=== PATIENT | female | born 1955 | race Caucasian/White ===

== ENCOUNTER 2021-09-07 10:07 | Outpatient (CLI) | payer MEDICARE | END 2021-09-07 10:08 | disposition home or self-care (01) | LOC: TBSIIMAG 10:07 | PROVIDERS: ATTEND Nurse Practitioner Family | DX: M48.062 Spinal stenosis, lumbar region with neurogenic claudication (principal); M43.16 Spondylolisthesis, lumbar region; M48.07 Spinal stenosis, lumbosacral region | CPT/HCPCS: 72148 ==

== ENCOUNTER 2022-06-26 12:26 | Outpatient (CLI) | payer MEDICARE | END 2022-06-26 12:27 | disposition home or self-care (01) | LOC: BICCT 12:26 | PROVIDERS: ATTEND Nurse Practitioner Family | DX: R51.9 Headache, unspecified (principal) | CPT/HCPCS: 70450 ==

== ENCOUNTER 2022-09-06 15:22 | Outpatient (CLI) | payer MEDICARE | END 2022-09-06 15:23 | disposition home or self-care (01) | LOC: SCSRAD 15:22 | PROVIDERS: ATTEND Family Medicine | DX: M54.6 Pain in thoracic spine (principal); M51.34 Other intervertebral disc degeneration, thoracic region; M85.88 Other specified disorders of bone density and structure, other site; M40.204 Unspecified kyphosis, thoracic region | CPT/HCPCS: 72072; 80053; 80061 ==

== ENCOUNTER 2024-01-12 06:06 | Inpatient (IN) | payer MEDICARE ==
[2024-01-12] MEDS ORDERED: EPINEPHrine 1 MG/ML VIAL ONE (06:45)
[2024-01-12] MEDS ORDERED: Bupivacaine 0.25% HCL 30 ML VIAL ONE (06:45)
[2024-01-12] MEDS ORDERED: Scopolamine 1 mg/72 hour Patch ONE (07:11)
[2024-01-12 07:14] LABS: #Basophils 0.1 thou/uL (0.0-0.2); #Eosinphils 0.2 thou/uL (0.0-0.7); #Monocytes 0.5 thou/uL (0.11-0.59); #Neutrophils 2.9 thou/uL (1.40-6.50); %Basophils 0.9 % (0.0-1.0); %Eosinophils 3.5 % (0.0-10.0); %Lymphocytes 32.3 % (21.0-51.0); %Neutrophils 53.1 % (42.0-75.0); Hematocrit 35.2 % (36.0-47.0); Hemoglobin 10.6 g/dL (12.0-16.0); Mean Corpuscular HGB CONC 30.1 g/dL (32.0-36.0); Mean Corpuscular Hemoglobin 24.5 pg (27.0-31.0); Mean Corpuscular Volume 81.3 fl (78.0-98.0); Mean Platelet Volume 11.4 fL (7.4-10.4); Platelet Count 405 10x3/uL (130-400); Red Blood Cell (RBC) Count 4.33 mill/uL (4.20-5.40); White Blood Cell (WBC) Count 5.4 10x3/uL (4.8-10.8)
[2024-01-12] MEDS ORDERED: Dextrose 50% Abboject 50 ML SYRINGE SLOW IVP PRN (07:15)
[2024-01-12] MEDS ORDERED: Glucagon 1 MG/ML KIT IM PRN (07:15)
[2024-01-12] MEDS ORDERED: Dextrose 5% in Water 1,000 ML IV PRN (07:15)
[2024-01-12] MEDS ORDERED: diphenhydrAMINE 50 MG/ML VIAL IVP PRN (07:15)
[2024-01-12] MEDS ORDERED: hydrALAZINE 20 MG/ML VIAL SLOW IVP PRN (07:15)
[2024-01-12] MEDS ORDERED: Ondansetron PF 4 MG/2 ML Vial IVP PRN (07:15)
[2024-01-12] MEDS ORDERED: Ipratropium/Albuterol 3 ML NEB NEB PRN (07:15)
[2024-01-12] MEDS ORDERED: Morphine 2 MG/ML VIAL SLOW IVP PRN (07:15)
[2024-01-12] MEDS ORDERED: Promethazine HCl 25 MG/ML VIAL IM PRN ×2 (07:15→12:18)
[2024-01-12] MEDS ORDERED: PROPOFOL 20 ML ONE (07:20)
[2024-01-12] MEDS ORDERED: fentaNYL PF 100 MCG/2 ML SYRINGE ONE (07:20)
[2024-01-12] MEDS ORDERED: Ondansetron PF 4 MG/2 ML Vial ONE (07:21)
[2024-01-12] MEDS ORDERED: Rocuronium Bromide 10 MG/ML (10ML VIAL) ONE ×2 (07:21→11:44)
[2024-01-12] MEDS ORDERED: Lidocaine 1% PF 5 ML VIAL ONE (07:21)
[2024-01-12] MEDS ORDERED: Dexamethasone 4 mg/ml Vial ONE (07:21)
[2024-01-12 07:27] LABS: Anion Gap 11 mmol/L (10-20); BUN (Urea Nitrogen) 17 mg/dL (9.8-20.1); Calc. Creatinine Clearance 129 mL/min (70-130); Calcium 9.8 mg/dL (7.8-10.44); Carbon Dioxide 24 mmol/L (23-31); Chloride 108 mmol/L (98-107); Estimated GFR 71; Glucose 104 mg/dL (80-115); Potassium 4.1 mmol/L (3.5-5.1); Sodium 139 mmol/L (136-145)
[2024-01-12] MEDS ORDERED: cefOXitin 2 GM VIAL ONE ×2 (07:33→09:39)
[2024-01-12] MEDS ORDERED: Sodium Chloride 0.9% 100 ML ONE (07:33)
[2024-01-12] MEDS ORDERED: ePHEDrine Sulfate 50 MG/10 ML VIAL ONE (08:38)
[2024-01-12] MEDS ORDERED: PHENYLEPHRINE-NS 100 MCG/ML 10 ML SYRINGE ONE (09:51)
[2024-01-12] MEDS ORDERED: SUGAMMADEX SODIUM 200 MG/2 ML VIAL ONE (11:56)
[2024-01-12] MEDS ORDERED: Ondansetron HCl/PF 4 MG/2 ML Vial IVP PRN (12:18)
[2024-01-12] MEDS ORDERED: Ketorolac Tromethamine 30 MG (1 mL) VIAL ONE ×2 (12:25→17:49)
[2024-01-12] MEDS: Ketorolac Tromethamine 30 MG (1 mL) VIAL IVP SCH (12:28)
[2024-01-12] MEDS ORDERED: HYDROmorphone 0.5 MG/0.5 ML SYRINGE ONE (13:08)
[2024-01-12] MEDS ORDERED: Labetalol HCl 100 MG/20 ML VIAL ONE (17:36)
[2024-01-12] MEDS ORDERED: D5 1/2 NS w/20 mEq KCL 1,000 ML ONE (17:43)
[2024-01-12] MEDS: D5 1/2 NS w/20 mEq KCL 1,000 ML IV SCH (18:01)
[2024-01-12] MEDS: Hydrocodone-Acetamin 15 ML UDCUP PO PRN (20:48)
[2024-01-12] MEDS: Lisinopril 20 MG TAB PO SCH (20:48)
[2024-01-13 07:53] VITALS: BP 109/70; TEMP 97.6
[2024-01-13] MEDS: Enoxaparin 40 MG (0.4 mL) SYRINGE SC SCH (09:26)
== END 2024-01-13 10:06 | disposition home or self-care (01) | DRG 327 ==
LOC: SDC 06:06 → SJJU 07:15
PROVIDERS: ADMIT Surgery; ATTEND Surgery
PROC: 0BUT4JZ Supplement Diaphragm with Synthetic Substitute, Percutaneous Endoscopic Approach (ICD-10-PCS; principal; 2024-01-12)
PROC: 0DP64CZ Removal of Extraluminal Device from Stomach, Percutaneous Endoscopic Approach (ICD-10-PCS; 2024-01-12)
PROC: 8E0W4CZ Robotic Assisted Procedure of Trunk Region, Percutaneous Endoscopic Approach (ICD-10-PCS; 2024-01-12)
DX: K44.9 Diaphragmatic hernia without obstruction or gangrene (principal); K31.1 Adult hypertrophic pyloric stenosis; Z68.42 Body mass index [BMI] 45.0-49.9, adult; D64.9 Anemia, unspecified; I48.91 Unspecified atrial fibrillation; I10 Essential (primary) hypertension; Z79.899 Other long term (current) drug therapy; Z83.3 Family history of diabetes mellitus; E66.01 Morbid (severe) obesity due to excess calories
CPT/HCPCS: 36415; 80048; 85025; 93005; 93010; C1781; J0171; J0665; J0694; J1100; J1170; J1650; J1885; J2405; J2704; J3480; J3490